=== PATIENT | female | born 1985 | race African-American/Black ===

== ENCOUNTER 2016-12-27 10:23 | Observation (INO) | payer MEDICAID | END 2016-12-27 12:00 | disposition home or self-care (01) | LOC: L&D 10:23 | PROVIDERS: ADMIT Obstetrics & Gynecology; ATTEND Obstetrics & Gynecology | DX: O26.893 Other specified pregnancy related conditions, third trimester (principal); R10.9 Unspecified abdominal pain; K08.89 Other specified disorders of teeth and supporting structures; R51 Headache; Z3A.38 38 weeks gestation of pregnancy | CPT/HCPCS: 99281; G0378 ==

== ENCOUNTER 2017-01-08 23:28 | Inpatient (IN) | payer MEDICAID ==
[~2017-01-08] VITALS: Ht 170.2 cm; Wt 72.6 kg
[2017-01-09] MEDS: LACTATED RINGERS 1,000 ML IV SCH ×3 (00:10→05:03)
[2017-01-09] MEDS: TERBUTALINE SULFATE 1MG/ML VIAL SUBCUT PRN ×3 (00:21→02:52)
[2017-01-09] MEDS ORDERED: DEXT 5%/LR + PITOCIN 20UNITS/L 1,000 ML IV SCH ×2 (05:25→08:14)
[2017-01-09] MEDS ORDERED: LACTATED RINGERS 1,000 ML IV SCH (05:25)
[2017-01-09] MEDS ORDERED: METHYLERGONOVINE MALEATE 0.2 MG/ML IM PRN (05:30)
[2017-01-09] MEDS ORDERED: MISOPROSTOL 100MCG TABLET VG SCH (05:30)
[2017-01-09] MEDS ORDERED: NALOXONE HCL 0.4 MG/ML 1ML VIAL IM PRN (05:30)
[2017-01-09 05:51] LABS: CLARITY URINE CLOUDY (CLEAR); COLOR URINE YELLOW (YELLOW); GLUCOSE URINE 1+ (NEGATIVE); KETONES URINE 2+ (NEGATIVE); LEUKOCYTE ESTERASE URINE 1+ (NEGATIVE); NITRITE URINE NEGATIVE (NEGATIVE); OCCULT BLOOD URINE 2+ (NEGATIVE); PH URINE 7.5 (4.5-8.0); PROTEIN URINE 1+ (NEGATIVE)
[2017-01-09 05:51] LABS: BASOPHILS % 0.2 % (0.0-2.0); EOSINOPHILS % 0.1 % (0.0-5.0); HEMATOCRIT. 27.4 % (36.0-48.0); HEMOGLOBIN. 9.3 g/dL (12.0-16.0); LYMPHOCYTES % 13.9 % (20.0-50.0); MEAN CORPUSCULAR HEMOGLOBIN 29.3 pg (28.0-32.0); MEAN CORPUSCULAR VOLUME 86.3 fL (81.0-99.0); MEAN PLATELET VOLUME 8.6 fl (7.4-10.4); MONOCYTES % 8.1 % (2.0-8.0); NEUTROPHILS % 77.7 % (40.0-76.0); PLATELET 178 x1000/uL (130-400); RED BLOOD CELL COUNT 3.17 mill/uL (4.2-5.4); RED CELL DISTRIBUTION WIDTH 15.5 % (11.6-14.6)
[2017-01-09 05:57] LABS: INR 0.9; PARTIAL THROMBOPLASTIN TIME 26.8 sec (23.4-31.0); PROTHROMBIN TIME 9.5 sec (9.4-11.6)
[2017-01-09 06:37] LABS: *BARBITURATES SCREEN URINE NEGATIVE (NEGATIVE); *BENZODIAZEPINES SCREEN URINE NEGATIVE (NEGATIVE); *COCAINE SCREEN URINE NEGATIVE (NEGATIVE); METHADONE URINE SCREEN NEGATIVE (NEGATIVE); OPIATES URINE SCREEN NEGATIVE (NEGATIVE); PHENCYCLIDINE URINE SCREEN NEGATIVE (NEGATIVE)
[2017-01-09 06:52] LABS: CARBON DIOXIDE 24 mEq/L (21-32); CHLORIDE 104 mEq/L (98-107)
[2017-01-09] MEDS ORDERED: PNV1TABL76 PO (07:07)
[2017-01-09] MEDS ORDERED: OXYTOCIN 10 UNITS/ML 1ML ONE ×2 (07:19→08:58)
[2017-01-09] MEDS ORDERED: CEFAZOLIN SODIUM 1000MG/VIAL ONE (07:19)
[2017-01-09] MEDS ORDERED: PHENYLEPHRINE HCL 10 MG/ML 1ML (IV VIAL) IV ONE (07:19)
[2017-01-09] MEDS ORDERED: FENTANYL CITRATE/PF 50MCG/ML 2ML VIAL ONE (07:21)
[2017-01-09] MEDS ORDERED: MORPHINE SULFATE/PF 1MG/ML 10ML AMP ONE (07:22)
[2017-01-09 07:40] LABS: *AMPHETAMINES SCREEN URINE PRESUMTIVE POSITIVE (NEGATIVE)
[2017-01-09 07:41] LABS: CANNABINOID URINE SCREEN PRESUMTIVE POSITIVE (NEGATIVE)
[2017-01-09] MEDS ORDERED: SODIUM CHLORIDE 0.9% 10ML VIAL ONE (07:46)
[2017-01-09] MEDS ORDERED: IBUPROFEN 400MG TABLET PO PRN (08:15)
[2017-01-09] MEDS ORDERED: RHO(D) IMMUNE GLOBULIN 300 MCG/SYR IM PRN (08:15)
[2017-01-09] MEDS ORDERED: HYDROMORPHONE HCL/PF 2MG/ML CPJ IM PRN (08:15)
[2017-01-09] MEDS ORDERED: BISACODYL 10MG SUPP PR PRN (08:15)
[2017-01-09] MEDS ORDERED: ONDANSETRON HCL 4MG/2ML VIAL ONE (08:29)
[2017-01-09] MEDS ORDERED: ONDANSETRON HCL 4MG/2ML VIAL IV PRN (11:15)
[2017-01-09] MEDS ORDERED: BUTORPHANOL TARTRATE 2 MG/ML VIAL IV PRN (11:15)
[2017-01-09] MEDS ORDERED: DIPHENHYDRAMINE 50MG/ML VIAL IV PRN (11:15)
[2017-01-09] MEDS ORDERED: NALOXONE HCL 0.4 MG/ML 1ML VIAL IV PRN (11:15)
[2017-01-09] MEDS: POTASSIUM CHLORIDE 20MEQ TABLET SR PO SCH ×2 (12:07→18:53)
[2017-01-09 12:19] LABS: HEPATITIS B SURFACE ANTIGEN NEGATIVE; RUBELLA IGG 406.8 IU/mL (4.99-10)
[2017-01-09 12:55] VITALS: BP 123/64
[2017-01-09 13:25] VITALS: BP 125/68
[2017-01-09 13:55] VITALS: BP 124/70
[2017-01-09] MEDS: DEXT IV SCH (17:45)
[2017-01-09] MEDS: OXYTOCIN IV SCH (17:45)
[2017-01-09] MEDS: LACTATED RINGERS IV SCH (17:45)
[2017-01-09 20:00] VITALS: BP 121/85
[2017-01-10] VITALS: BP 120/81
[2017-01-10] MEDS: KETOROLAC 30MG/ML VIAL IV PRN ×2 (00:43→07:49)
[2017-01-10] MEDS: LACTATED RINGERS IV SCH (01:20)
[2017-01-10] MEDS: DEXT IV SCH (01:20)
[2017-01-10] MEDS: OXYTOCIN IV SCH (01:20)
[2017-01-10 05:30] VITALS: BP 122/79
[2017-01-10 06:57] LABS: HEMOGLOBIN. 8.5 g/dL (12.0-16.0); MEAN CORPUSCULAR HEMOGLOBIN 28.6 pg (28.0-32.0); MEAN CORPUSCULAR VOLUME 87.2 fL (81.0-99.0); MEAN PLATELET VOLUME 8.2 fl (7.4-10.4); PLATELET 130 x1000/uL (130-400); RED BLOOD CELL COUNT 2.99 mill/uL (4.2-5.4); RED CELL DISTRIBUTION WIDTH 15.3 % (11.6-14.6)
[2017-01-10 07:32] VITALS: BP 118/65
[2017-01-10 13:16] LABS: PLATELET ESTIMATE NORMAL
[2017-01-10] MEDS: IBUPROFEN 800MG TABLET PO PRN (15:56)
[2017-01-10 16:03] VITALS: BP 118/63
[2017-01-10 20:00] VITALS: BP 117/58
[2017-01-11] MEDS: IBUPROFEN 800MG TABLET PO PRN ×3 (00:23→21:07)
[2017-01-11 05:45] VITALS: BP 115/61
[2017-01-11 08:00] VITALS: BP 109/72
[2017-01-11] MEDS: ACETAMINOPHEN WITH CODEINE 300/30MG TABLET PO PRN ×2 (08:30→21:08)
[2017-01-11 16:37] VITALS: BP 121/76
[2017-01-11 19:45] VITALS: BP 115/62
[2017-01-12] VITALS: BP 132/84
[2017-01-12 03:40] VITALS: BP 112/58
[2017-01-12] MEDS: IBUPROFEN 800MG TABLET PO PRN ×2 (03:41→13:09)
[2017-01-12] MEDS: ACETAMINOPHEN WITH CODEINE 300/30MG TABLET PO PRN (03:41)
[2017-01-12 08:07] VITALS: BP 114/60
[2017-01-12 13:09] VITALS: BP 114/60
[2017-01-17 04:13] LABS: AMPHETAMINE CONF URINE Positive (.); CANNABINOID CONFIRMATION URINE Positive (.)
== END 2017-01-12 14:00 | disposition home or self-care (01) | DRG 540 ==
LOC: L&D 23:28 → OBSVTOIN 23:28 → 7EST PP/OB 01-09 12:30
PROVIDERS: ADMIT Obstetrics & Gynecology; ATTEND Obstetrics & Gynecology
PROC: 10D00Z1 Extraction of Products of Conception, Low, Open Approach (ICD-10-PCS; principal; 2017-01-09 08:23)
DX: O34.211 Maternal care for low transverse scar from previous cesarean delivery (principal); O99.324 Drug use complicating childbirth; F15.10 Other stimulant abuse, uncomplicated; F12.10 Cannabis abuse, uncomplicated; Z3A.40 40 weeks gestation of pregnancy; Z37.0 Single live birth; Z80.9 Family history of malignant neoplasm, unspecified; Z82.49 Family history of ischemic heart disease and other diseases of the circulatory system; Z83.3 Family history of diabetes mellitus; Z82.61 Family history of arthritis
CPT/HCPCS: 36415; 76805; 76818; 80053; 80305; 80307; 80349; 81001; 84132; 84443; 84480; 85025; 85610; 85730; 86592; 86703; 86762; 86850; 86900; 87340; 88307; 99281; A4216; G0378; J0690; J1885; J2274; J2370; J2405; J2590; J3010; J3105; J7120; J7121; A4315

== ENCOUNTER 2019-02-16 07:34 | Inpatient (IN) | payer MEDICAID ==
[~2019-02-16] VITALS: Ht 170.2 cm; Wt 81.6 kg
[2019-02-16] MEDS ORDERED: LACTATED RINGERS 1,000 ML IV SCH ×2 (08:18→09:00)
[2019-02-16] MEDS ORDERED: SERT50TA PO (08:18)
[2019-02-16] MEDS ORDERED: DEXT 5%/LR + PITOCIN 20UNITS/L 1,000 ML IV SCH ×2 (08:18→15:55)
[2019-02-16] MEDS ORDERED: BETAMETHASONE ACET/BETAMET 30 MG/5 ML VIAL IM ONE (08:30)
[2019-02-16] MEDS ORDERED: NALOXONE HCL 0.4 MG/ML 1ML VIAL IM PRN (08:30)
[2019-02-16] MEDS ORDERED: CARBOPROST TROMETHAMINE 250 MCG/ML AMPUL IM PRN (08:30)
[2019-02-16] MEDS ORDERED: MAGNESIUM 20 G PREMIX (L & D) 500 ML IV SCH (08:30)
[2019-02-16 09:20] LABS: BASOPHILS % 0.3 % (0.0-2.0); EOSINOPHILS % 0.9 % (0.0-5.0); HEMATOCRIT. 32.5 % (36.0-48.0); HEMOGLOBIN. 11.3 g/dL (12.0-16.0); LYMPHOCYTES % 20.7 % (20.0-50.0); MEAN CORPUSCULAR HEMOGLOBIN 35.8 pg (28.0-32.0); MEAN CORPUSCULAR VOLUME 102.8 fL (81.0-99.0); MEAN PLATELET VOLUME 8.6 fl (7.4-10.4); NEUTROPHILS % 66.1 % (40.0-76.0); PLATELET 216 x1000/uL (130-400); RED BLOOD CELL COUNT 3.16 mill/uL (4.2-5.4); RED CELL DISTRIBUTION WIDTH 15.4 % (11.6-14.6)
[2019-02-16 09:27] LABS: CHLORIDE 108 mEq/L (98-107)
[2019-02-16 09:36] LABS: CLARITY URINE CLEAR (CLEAR); COLOR URINE YELLOW (YELLOW); KETONES URINE NEGATIVE (NEGATIVE); LEUKOCYTE ESTERASE URINE NEGATIVE (NEGATIVE); NITRITE URINE NEGATIVE (NEGATIVE); OCCULT BLOOD URINE 2+ (NEGATIVE); PROTEIN URINE NEGATIVE (NEGATIVE); UROBILINOGEN URINE 0.2 E.U./dL (0.2-1.0)
[2019-02-16 09:37] LABS: PARTIAL THROMBOPLASTIN TIME 31.3 sec (23.4-31.0); PROTHROMBIN TIME 10.7 sec (9.6-11.0)
[2019-02-16 10:04] LABS: *BARBITURATES SCREEN URINE NEGATIVE (NEGATIVE)
[2019-02-16 10:05] LABS: *BENZODIAZEPINES SCREEN URINE NEGATIVE (NEGATIVE); *COCAINE SCREEN URINE NEGATIVE (NEGATIVE); METHADONE URINE SCREEN NEGATIVE (NEGATIVE); OPIATES URINE SCREEN NEGATIVE (NEGATIVE); PHENCYCLIDINE URINE SCREEN NEGATIVE (NEGATIVE)
[2019-02-16 10:44] LABS: *AMPHETAMINES SCREEN URINE PRESUMTIVE POSITIVE (NEGATIVE); CANNABINOID URINE SCREEN PRESUMTIVE POSITIVE (NEGATIVE)
[2019-02-16 12:37] LABS: HEPATITIS B SURFACE ANTIGEN NEGATIVE
[2019-02-16] MEDS ORDERED: FENTANYL CITRATE/PF 50MCG/ML 2ML VIAL ONE ×2 (13:50→15:39)
[2019-02-16] MEDS ORDERED: MIDAZOLAM HCL 2 MG/2 ML VIAL ONE (13:51)
[2019-02-16] MEDS ORDERED: LIDOCAINE HCL/PF 1% 10 MG/ML 5ML VIAL ONE (13:55)
[2019-02-16] MEDS ORDERED: PROPOFOL 200MG/20ML VIAL IV ONE (13:55)
[2019-02-16] MEDS ORDERED: SUCCINYLCHOLINE CHLORIDE 200MG/10ML IV ONE (13:56)
[2019-02-16] MEDS ORDERED: ROCURONIUM BROMIDE 10MG/ML VIAL 5ML IV ONE (13:56)
[2019-02-16] MEDS ORDERED: DEXAMETHASONE 4MG/ML 1ML VIAL ONE (13:58)
[2019-02-16] MEDS ORDERED: PHENYLEPHRINE HCL 10 MG/ML 1ML (IV VIAL) IV ONE (14:00)
[2019-02-16] MEDS ORDERED: CITRIC ACID/SODIUM CITRATE SOLN 30ML UDC PO NR (14:00)
[2019-02-16] MEDS ORDERED: EPHEDRINE SULFATE 50MG/ML VIAL ONE (14:00)
[2019-02-16] MEDS ORDERED: SODIUM CHLORIDE 0.9% 10ML VIAL ONE (14:03)
[2019-02-16] MEDS ORDERED: CEFAZOLIN SODIUM 1000MG/VIAL ONE (15:05)
[2019-02-16] MEDS ORDERED: OXYTOCIN 10 UNITS/ML 1ML ONE ×2 (15:07→15:08)
[2019-02-16] MEDS ORDERED: GLYCOPYRROLATE 0.2 MG/ML 2ML VIAL ONE (15:21)
[2019-02-16] MEDS ORDERED: IBUPROFEN 400MG TABLET PO PRN (16:00)
[2019-02-16] MEDS ORDERED: ONDANSETRON HCL 4MG/2ML INJ IV PRN (16:00)
[2019-02-16] MEDS ORDERED: RHO(D) IMMUNE GLOBULIN 300 MCG/SYR IM PRN (16:00)
[2019-02-16] MEDS: HYDROMORPHONE HCL/PF 2MG/ML CPJ IV PRN ×3 (16:20→17:44)
[2019-02-16] MEDS ORDERED: ONDANSETRON INJ IV PRN (18:30)
[2019-02-16] MEDS ORDERED: NALOXONE INJ IV PRN (18:30)
[2019-02-16] MEDS ORDERED: MORPHINE PCA 50MG/50ML IV PRN (18:30)
[2019-02-16] MEDS ORDERED: DIPHENHYDRAMINE INJ IV PRN (18:30)
[2019-02-16 18:33] VITALS: BP 119/76
[2019-02-16 20:00] VITALS: BP 120/73
[2019-02-16] MEDS: HYDROMORPHONE HCL/PF 2MG/ML CPJ IM PRN (20:47)
[2019-02-17 00:34] VITALS: BP 108/65
[2019-02-17 04:00] VITALS: BP 105/66
[2019-02-17 07:30] VITALS: BP 115/74
[2019-02-17] MEDS: IBUPROFEN 800MG TABLET PO PRN (09:49)
[2019-02-17 11:24] LABS: BASOPHILS % 0.1 % (0.0-2.0); EOSINOPHILS % 0.1 % (0.0-5.0); HEMATOCRIT. 25.1 % (36.0-48.0); HEMOGLOBIN. 8.7 g/dL (12.0-16.0); LYMPHOCYTES % 11.5 % (20.0-50.0); MEAN CORPUSCULAR HEMOGLOBIN 35.5 pg (28.0-32.0); MEAN CORPUSCULAR VOLUME 102.8 fL (81.0-99.0); MEAN PLATELET VOLUME 7.7 fl (7.4-10.4); MONOCYTES % 7.9 % (2.0-8.0); NEUTROPHILS % 80.4 % (40.0-76.0); PLATELET 170 x1000/uL (130-400); RED BLOOD CELL COUNT 2.44 mill/uL (4.2-5.4); RED CELL DISTRIBUTION WIDTH 15.1 % (11.6-14.6)
[2019-02-17] MEDS: HYDROMORPHONE HCL/PF 2MG/ML CPJ IM PRN (11:59)
[2019-02-17 16:00] VITALS: BP 106/65
[2019-02-17] MEDS: HYDROCODONE/ACETAMINOPHEN 10/325MG TABLET PO PRN ×2 (16:35→21:13)
[2019-02-17 22:00] VITALS: BP 99/59
[2019-02-18] MEDS: IBUPROFEN 800MG TABLET PO PRN ×3 (00:46→15:04)
[2019-02-18 06:00] VITALS: BP 103/64
[2019-02-18 07:38] VITALS: BP 101/63
[2019-02-18] MEDS: HYDROCODONE/ACETAMINOPHEN 10/325MG TABLET PO PRN ×3 (10:38→23:24)
[2019-02-18 16:03] VITALS: BP 96/55
[2019-02-19] VITALS: BP 100/60
[2019-02-19 05:32] VITALS: BP 104/53
[2019-02-19] MEDS ORDERED: MULT1TAB67 MT (06:57)
[2019-02-19] MEDS ORDERED: IBUP-2029 MT (06:57)
[2019-02-19] MEDS ORDERED: FERR325T6 MT (06:57)
[2019-02-19] MEDS: HYDROCODONE/ACETAMINOPHEN 10/325MG TABLET PO PRN (07:34)
[2019-02-19 08:15] VITALS: BP 107/63
[2019-02-21 13:06] LABS: AMPHETAMINE CONF URINE Positive (.); CANNABINOID CONFIRMATION URINE Positive (.)
== END 2019-02-19 12:15 | disposition home or self-care (01) | DRG 540 ==
LOC: 8 EST LDRP 07:34 → OBSVTOIN 07:34 → 8EST 17:36
PROVIDERS: ADMIT Obstetrics & Gynecology; ATTEND Obstetrics & Gynecology
PROC: 10D00Z1 Extraction of Products of Conception, Low, Open Approach (ICD-10-PCS; principal; 2019-02-16)
DX: O69.1XX0 Labor and delivery complicated by cord around neck, with compression, not applicable or unspecified (principal); O45.93 Premature separation of placenta, unspecified, third trimester; O60.13X0 Preterm labor second trimester with preterm delivery third trimester, not applicable or unspecified; O34.211 Maternal care for low transverse scar from previous cesarean delivery; O90.81 Anemia of the puerperium; F15.10 Other stimulant abuse, uncomplicated; O99.324 Drug use complicating childbirth; F12.10 Cannabis abuse, uncomplicated; O99.344 Other mental disorders complicating childbirth; F32.9 Major depressive disorder, single episode, unspecified; Z3A.30 30 weeks gestation of pregnancy; Z37.0 Single live birth
CPT/HCPCS: 36415; 76805; 76818; 80305; 80307; 80349; 81003; 86592; 86703; 86762; 86850; 86900; 86920; 87340; 88307; 99281; J0330; J0690; J0702; J1100; J1170; J2250; J2270; J2370; J2590; J2704; J3010; J3475; J3490; J7120; A4315